=== PATIENT | male | born 1960 | race Caucasian/White ===

== ENCOUNTER → 2021-05-23 | Outpatient (CLI) | payer BC ==
[2021-05-23 07:25] LABS: POTASSIUM 4.2 mmol/L (3.5-5.1)
[2021-05-23 07:26] LABS: ALBUMIN 4.1 g/dL (3.4-4.8)
[2021-05-23 07:27] LABS: CALCIUM 9.2 mg/dL (8.3-10.5)
[2021-05-23 07:30] LABS: TOTAL BILIRUBIN 1.8 mg/dL (0.2-1.2)
== END ==
LOC: LAB 07:03
PROVIDERS: Family Medicine
DX: Z12.5 Encounter for screening for malignant neoplasm of prostate (principal); Z13.220 Encounter for screening for lipoid disorders; Z13.1 Encounter for screening for diabetes mellitus

== ENCOUNTER → 2021-06-01 | Outpatient (CLI) | payer BC | LOC: LAB 12:24 | DX: E80.6 Other disorders of bilirubin metabolism (principal); R73.9 Hyperglycemia, unspecified ==

== ENCOUNTER → 2021-10-17 | Day surgery (SDC) | payer BC | END | disposition home or self-care (01) | LOC: MSO 08:55 | DX: Z12.11 Encounter for screening for malignant neoplasm of colon (principal); D12.2 Benign neoplasm of ascending colon; D12.3 Benign neoplasm of transverse colon; D12.5 Benign neoplasm of sigmoid colon | CPT/HCPCS: 00811; J2704; J7120 ==

== ENCOUNTER → 2021-11-16 | Outpatient (CLI) | payer BC | LOC: LAB 06:59 | DX: Z00.00 Encounter for general adult medical examination without abnormal findings (principal); E80.6 Other disorders of bilirubin metabolism; R73.9 Hyperglycemia, unspecified; R06.83 Snoring; R09.89 Other specified symptoms and signs involving the circulatory and respiratory systems; R97.20 Elevated prostate specific antigen [PSA] ==